=== PATIENT | female | born 1960 | race African-American/Black ===

== ENCOUNTER 2017-04-02 15:56 | Emergency (ER) | payer OTHER ==
[~2017-04-02] VITALS: Ht 172.7 cm; Wt 97.6 kg
[~2017-04-02 15:56] MED LIST: AZOR 10/40 M1 TABLET PO; Aspirin E.C. PO; BAYER PLUS 500500 MG PO
[2017-04-02 19:56] LABS: ADD MIUA? YES; BILIRUBIN NEGATIVE; BLOOD NEGATIVE; COLOR YELLOW ((YELLOW)); GLUCOSE (STRIP) NEGATIVE; KETONES NEGATIVE; LEUKOCYTES MODERATE; NITRITE POSITIVE; PROTEIN (STRIP) 30; SPECIFIC GRAVITY 1.012 (1.000-1.030); UROBILINOGEN 0.2 MG/DL (0.2-1.0)
[2017-04-02 20:04] LABS: BACTERIA 2+ /HPF; EPITHELIAL CELLS RARE /HPF; HYALINE CASTS 0-5 /LPF; MUCUS TRACE /LPF; RED BLOOD CELLS 0-5 /HPF (0-5); UCUL ADDED? YES; WHITE BLOOD CELLS TNTC /HPF (0-5)
[2017-04-02] MEDS ORDERED: BACTRIM,SEPT1 TABLET PO (21:10)
[2017-04-02 21:24] VITALS: BP 0/0
== END 2017-04-02 21:26 | disposition home or self-care (01) ==
LOC: EME 15:56
PROVIDERS: Physician Assistant
DX: N39.0 Urinary tract infection, site not specified (principal); S39.012A Strain of muscle, fascia and tendon of lower back, initial encounter; X50.0XXA Overexertion from strenuous movement or load, initial encounter; Y99.0 Civilian activity done for income or pay; G89.29 Other chronic pain; K21.9 Gastro-esophageal reflux disease without esophagitis; J45.909 Unspecified asthma, uncomplicated; I10 Essential (primary) hypertension; E78.5 Hyperlipidemia, unspecified; Z79.82 Long term (current) use of aspirin; Z88.0 Allergy status to penicillin; F17.200 Nicotine dependence, unspecified, uncomplicated
CPT/HCPCS: 72131; 81003; 87077; 87086; 87186; 99281; 99285